=== PATIENT | female | born 1960 | race Caucasian/White ===

== ENCOUNTER → 2017-05-10 | Outpatient (CLI) | payer MEDICARE, MEDICAID ==
[~2017-05-10] MED LIST: ACE325 PO; ACE325S PR; ADV250/50 INH; ALB17R IH; ALBL FT; ALBU90AE INH; ALBUDR INH; ALE70 PO; ALP1 PO; ALP5 PO; ALPR-434 PO; ARIP10TA4 PO; ARIP15TA9 PO; ASC500 PO; ASCO500C9 PO; ASPI-1471 PO; ATEN-65 PO; ATEN-76 PO; ATOR20TA22 PO; ATOR20TA65 PO; BAC10 PO; BACI28.310 TP; BACL-1 PO; BISA-107 PO; BISM1BAN TP; BUDE10.2 IH; BUDE10.25 IH; BUPR-118 PO; BUPR-474 PO; BUPR300T56 PO; CALC-774 PO; CALC-896 PO; CALC667C7 PO; CEF300 PO; CELE-1 PO; CEP500 PO; CHOL100062 PO; CIPR-344 PO; CIPR-345 PO; CYC10 PO; DARI15TA5 PO; DOXA1TAB37 PO; DUL30 PO; DULO60CA51 PO; DULO60CA56 PO; ESZO1TAB16 PO; ESZO3TAB37 PO; FAM20 PO; FEN100TPT TD; FENT-16 TD; FENT-23 TD; FENT-60 TD; FESO8PT PO; FEXO180T74 PO; FLUC150T40 PO; FLUINH INH; FLUT100D INH; FLUT1DIS28 IH; FUR20 PO; GAB300 PO; GEM600 PO; HCTZ25 PO; HYD2 PO; HYDR-2946 PO; HYDR-319; HYDR-3724 PO; HYDR-4308 PO; HYDR-4309 PO; IBUP-56 PO; LEVO-85 PO; LEVO500T83 PO; LOPE-88 PO; LOSA100T67 PO; LOVA20TA99 PO; METO-733 PO; METR-1 PO; MIRA50TA PO; MON10 PO; MONT10TA PO; MORIR15 PO; MORP-23 PO; MORPHINE PO; NOR75/325 PO; OMEG-11 PO; OMEG-23 PO; OMEG-27 PO; OMEP-137 PO; OMEP40CA48 PO; OMEP40CA79 PO; ORP100 PO; OXY5 PO; OXYC-865 PO; OXYGEN INH; OXYGENHOME INH; OXYXL5 PO; POT5L PO; POTA10CA61 PO; PRA20 PO; PRAV40TA78 PO; PRE20 PO; PRED20TA6 PO; PROM-110 PO; PROP10TA58 PO; ROPI0.5T24 PO; SITA100T9 PO; SPIR25TA78 PO; TOLT4CAP13 PO; TRAZ-133 PO; TRAZ-156 PO; TRAZ50 PO; TROL85CR TP; VALS-25 PO; VALS160T20 PO; [UNRECOGNIZED DRUG - CODE] PO; [UNRECOGNIZED DRUG - CODE] TP; [UNRECOGNIZED DRUG - CODE] TP; [UNRECOGNIZED DRUG - CODE] TP; [UNRECOGNIZED DRUG - CODE] TP
[2017-05-10 14:27] LABS: LDL CHOLESTEROL 72 mg/dl
== END ==
LOC: LAB 13:46
PROVIDERS: ATTEND Nurse Practitioner Family
DX: I10 Essential (primary) hypertension (principal); G47.30 Sleep apnea, unspecified; K50.90 Crohn's disease, unspecified, without complications; Z86.39 Personal history of other endocrine, nutritional and metabolic disease; E87.6 Hypokalemia; R73.01 Impaired fasting glucose; D51.0 Vitamin B12 deficiency anemia due to intrinsic factor deficiency; E55.9 Vitamin D deficiency, unspecified
CPT/HCPCS: 36415; 82040; 82247; 82306; 82310; 82374; 82435; 82465; 82565; 82607; 82947; 83036; 83718; 84075; 84132; 84155; 84295; 84443; 84450; 84460; 84478; 84520; 85027

== ENCOUNTER → 2017-08-19 | Outpatient (CLI) | payer MEDICARE, MEDICAID ==
[~2017-08-19] MED LIST changes: -ALBL FT; +ALBU2SYR19 FT
== END ==
LOC: LAB 14:12
PROVIDERS: ATTEND Urology
DX: N39.0 Urinary tract infection, site not specified (principal); B96.20 Unspecified Escherichia coli [E. coli] as the cause of diseases classified elsewhere
CPT/HCPCS: 81001; 87077; 87088; 87186

== ENCOUNTER 2017-11-14 16:56 | Emergency (ER) | payer MEDICARE, MEDICAID ==
[~2017-11-14 16:56] MED LIST changes: -SPIR25TA78 PO; +SPIR25TA80 PO; -TRAZ-156 PO; +TRAZ50TA34 PO
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
[2017-11-14 18:56] LABS: PLATELET COUNT, AUTOMATED 232 K/uL (150-450)
--- NOTE | 2017-11-14 19:17 | RADIOLOGY IMAGING REPORT ---
FACILITY: [facility] - [place] PATIENT NAME: Mounika Thornton : 1960 MR: [id number] V: [id number] EXAM DATE: ORDERING PHYSICIAN: DANIELLE QUINONEZ TECHNOLOGIST: Location: [facility] Patient: Mounika Thornton : 1960 Visit/Account:[id number] Date of Sevice: 11/14/2017 Examination: HIP RIGHT, FEMUR RIGHT Comparison: 04/14/2015 History: Right upper leg pain. Paraplegia. Findings: 1 view pelvis and 1 view right hip. The pelvic ring is intact. Pubic symphysis and sacroiliac joint a lignment is maintained. Hip alignment is within normal limits and the hip joint space is fairly well- preserved. 2 views right femur: Right femur antegrade intramedullary zacarias with distal and proximal interlocking s crews bridging a healed mid diaphysis fracture. Surgical hardware is intact. No acute fracture. Dystr ophic ossification adjacent to the greater tuberosity is unchanged. Knee alignment is within normal l imits. No soft tissue acute abnormality. Diffuse atrophy of the musculature. IMPRESSION: 1. No pelvis, right hip, or right femur fracture or malalignment. 2. Right femur internal fixation. Report Dictated By: Michael Ott MD at 11/14/2017 7:11 PM Report E-Signed By: Michael Ott MD at 11/14/2017 7:14 PM WSN:[id number]
--- NOTE | 2017-11-14 19:17 | RADIOLOGY IMAGING REPORT ---
FACILITY: [facility] PATIENT NAME: Mounika Thornton : 1960 MR: [id number] V: [id number] EXAM DATE: ORDERING PHYSICIAN: DANIELLE QUINONEZ TECHNOLOGIST: Location: [facility] Patient: Mounika Thornton : 1960 Visit/Account:[id number] Date of Sevice: 11/14/2017 Examination: HIP RIGHT, FEMUR RIGHT Comparison: 04/14/2015 History: Right upper leg pain. Paraplegia. Findings: 1 view pelvis and 1 view right hip. The pelvic ring is intact. Pubic symphysis and sacroiliac joint a lignment is maintained. Hip alignment is within normal limits and the hip joint space is fairly well- preserved. 2 views right femur: Right femur antegrade intramedullary zacarias with distal and proximal interlocking s crews bridging a healed mid diaphysis fracture. Surgical hardware is intact. No acute fracture. Dystr ophic ossification adjacent to the greater tuberosity is unchanged. Knee alignment is within normal l imits. No soft tissue acute abnormality. Diffuse atrophy of the musculature. IMPRESSION: 1. No pelvis, right hip, or right femur fracture or malalignment. 2. Right femur internal fixation. Report Dictated By: Michael Ott MD at 11/14/2017 7:11 PM Report E-Signed By: Michael Ott MD at 11/14/2017 7:14 PM WSN:[email or web address]
--- NOTE | 2017-11-14 19:21 | RADIOLOGY IMAGING REPORT ---
FACILITY: [facility] - [place] PATIENT NAME: Mounika Thornton : 1960 MR: [id number] V: [id number] EXAM DATE: ORDERING PHYSICIAN: DANIELLE QUINONEZ TECHNOLOGIST: Location: [facility] Patient: Mounika Thornton : 1960 Visit/Account:[id number] Date of Sevice: 11/14/2017 Examination: LUMBAR SPINE 2 OR 3 VIEW Comparison: 08/11/2015. History: pain Findings: T11-L1 posterior fusion with pedicle screws and paraspinal rods is incompletely visualized. The visualized hardware is intact. Approximately 4 mm of degenerative spondylolisthesis at L4-L5 is unchanged. Multilevel advanced facet arthropathy. Minimal disc space loss. No new vertebral body heig ht loss or malalignment. No acute soft tissue abnormality. IMPRESSION: 1. T11-L1 posterior fusion. 2. No lumbar spine acute vertebral body height loss or malalignment. Report Dictated By: Michael Ott MD at 11/14/2017 7:14 PM Report E-Signed By: Michael Ott MD at 11/14/2017 7:18 PM WSN:[id number]
[2017-11-14 19:30] VITALS: BP 101/50
[2017-11-14] MEDS ORDERED: VALA100062 PO (20:02)
[2017-11-14] MEDS ORDERED: LIDO700A19 TD (20:02)
[2017-11-14] MEDS ORDERED: valACYclovir HCL 500 MG TAB PO ONE (20:05)
[2017-11-14] MEDS ORDERED: LIDOCAINE 5% PATCH TP SCH (20:05)
[2017-11-14] MEDS ORDERED: PATCH REMOVAL 1 EA TOP SCH (21:00)
== END 2017-11-14 20:25 | disposition home or self-care (01) ==
LOC: ER 17:21
DX: B02.9 Zoster without complications (principal)
CPT/HCPCS: 36415; 72100; 73502; 73552; 85025; 85651; 86140; 99284; A9270; 82040; 82247; 82310; 82374; 82435; 82565; 82947; 84075; 84132; 84155; 84295; 84450; 84460; 84520

== ENCOUNTER → 2017-12-03 | Outpatient (REF) | payer MEDICARE, MEDICAID ==
[~2017-12-03] MED LIST changes: +LIDO700A19 TD; +VALA100062 PO
== END ==
LOC: ZZSENDIN 15:27
PROVIDERS: ATTEND Nurse Practitioner Family
DX: S91.302A Unspecified open wound, left foot, initial encounter (principal); B96.20 Unspecified Escherichia coli [E. coli] as the cause of diseases classified elsewhere
CPT/HCPCS: 87070; 87077; 87186

== ENCOUNTER → 2017-12-23 | Outpatient (CLI) | payer MEDICARE, MEDICAID ==
--- NOTE | 2017-12-24 14:27 | RADIOLOGY IMAGING REPORT ---
[place] [facility] [place] Mounika Thornton : 1960 MR: [id number] V: [id number] EXAM DATE: ORDERING PHYSICIAN: SVITLANA WOOTEN TECHNOLOGIST: Location: [facility] [place] Patient: Mounika Thornton : 1960 Visit/Account:[id number] Date of Sevice: 12/23/2017 Exam type: FOOT 3 VIEW LEFT History: Foot pain and ulcer Comparison: December 16, 2012. Findings: There is diffuse osteopenia present. An old posterior fracture deformity the distal left tibia and f ibula again seen.. There is a deformity of the calcaneus suggesting prior fracture which appears new when compared the prior study There is no evidence of acute fracture dislocation identified although extensive degenerative changes are seen throughout the interphalangeal joints. No definite bony ero david is seen. IMPRESSION: 1. Diffuse osteopenia and old fractures through the distal left tibia fibula in calcaneus although n o gross evidence of bony erosion or acute appearing fracture Report Dictated By: Flavia Regan MD at 12/24/2017 2:01 PM Report E-Signed By: Flavia Regan MD at 12/24/2017 2:23 PM WSN:[email or web address]
--- NOTE | 2017-12-24 14:30 | RADIOLOGY IMAGING REPORT ---
FACILITY: [facility] - [place] PATIENT NAME: Mounika Thornton : 1960 MR: [id number] V: [id number] EXAM DATE: ORDERING PHYSICIAN: SVITLANA WOOTEN TECHNOLOGIST: Location: [facility] [place] Patient: Mounika Thornton : 1960 Visit/Account:[id number] Date of Sevice: 12/23/2017 Exam type: FOOT 3 VIEW RIGHT History: Foot pain with ulcer Comparison: April 22, 2012. Findings: There is diffuse osteopenia present and degenerative changes seen throughout the interphalangeal join ts and first MTP joint. There is no evidence of acute fracture or dislocation or bony erosion. Ther e suggestion of old fracture to the distal right tibia IMPRESSION: 1. Osteopenia and old fracture to the distal right tibia although no evidence of acute fracture or b jeannette erosion seen Report Dictated By: Flavia Regan MD at 12/24/2017 2:23 PM Report E-Signed By: Flavia Regan MD at 12/24/2017 2:25 PM WSN:[email or web address]
== END ==
LOC: RAD 13:45
PROVIDERS: ATTEND Nurse Practitioner Family
DX: M85.871 Other specified disorders of bone density and structure, right ankle and foot (principal); M85.872 Other specified disorders of bone density and structure, left ankle and foot

== ENCOUNTER → 2018-01-02 | Outpatient (CLI) | payer MEDICARE, MEDICAID ==
--- NOTE | 2018-01-02 15:50 | RADIOLOGY IMAGING REPORT ---
FACILITY: [facility] PATIENT NAME: Mounika Thornton : 1960 MR: [id number] V: [id number] EXAM DATE: ORDERING PHYSICIAN: SVITLANA WOOTEN TECHNOLOGIST: Location: [facility] Patient: Mounika Thornton : 1960 Visit/Account:[id number] Date of Sevice: 01/02/2018 VENOUS DOPP LOW LEFT EXTREMITY ADDITIONAL PERTINENT HISTORY: Edema of the left lower leg.. COMPARISON STUDIES: None. FINDINGS: Grayscale compression, duplex and color Doppler interrogation of the left lower extremity deep veins from common femoral vein to proximal calf was performed. The greater saphenous vein in the ipsilatera l proximal thigh was evaluated using similar technique. Left lower extremity: Common femoral vein: Negative. Femoral vein: Negative. Deep femoral vein: Negative. Popliteal vein: Negative. Visualized deep calf veins Negative. Greater saphenous vein in the proximal thigh: Negative. Popliteal fossa: negative Surrounding soft tissues: Mild edema involving the left calf. IMPRESSION: 1. No evidence of deep venous thrombosis involving the left lower extremity. Report Dictated By: César Lott MD at 01/02/2018 3:44 PM Report E-Signed By: César Lott MD at 01/02/2018 3:45 PM WSN:[email or web address]
== END ==
LOC: US 14:17
PROVIDERS: ATTEND Nurse Practitioner Family
DX: R60.0 Localized edema (principal)

== ENCOUNTER 2018-02-22 18:10 | Emergency (ER) | payer MEDICARE, MEDICAID ==
[~2018-02-22 18:10] MED LIST changes: -HYDR-4308 PO; -HYDR-4309 PO; +HYDR-653 PO; +HYDR-654 PO; -LOSA100T67 PO; +LOSA100T69 PO
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
[2018-02-22] MEDS ORDERED: NS(*) 0.9% 1000 ML BAG 1,000 ML IV ONE (18:37)
[2018-02-22 19:17] LABS: PLATELET COUNT, AUTOMATED 273 K/uL (150-450)
[2018-02-22] MEDS ORDERED: IOPAMIDOL 76% 75 ML INFUS BTL 75 ML ONE (19:55)
--- NOTE | 2018-02-22 21:01 | RADIOLOGY IMAGING REPORT ---
[place] [facility] [place] Mounika Thornton : 1960 MR: [id number] V: [id number] EXAM DATE: ORDERING PHYSICIAN: ESAU CLEMONS TECHNOLOGIST: Location: [facility] Patient: Mounika Thornton : 1960 Visit/Account:[id number] Date of Sevice: 02/22/2018 Computed tomograpy abdomen and pelvis with IV contrast Indication: Possible inguinal hernia. Further evaluate. Comparison: 12/15/2013 Technique: Transaxial computed tomography images were obtained through the abdomen and pelvis follo wing the injection of nonionic iodinated intravenous contrast. Reformatted coronal and sagittal image s were also obtained. One of the following dose optimization techniques was utilized in the performance of this exam: Autom ated exposure control; adjustment of the mA and/or kV according to the patient's size; or use of an i terative reconstruction technique. Specific details can be referenced in the facility's radiology C T exam operational policy. Contrast: 75 ml of Isovue-370 IV contrast. Findings: Lower lung nguyen: Linear atelectasis is seen within the left lung base. Old left-sided rib fractures are seen. Liver: No focal parenchymal abnormality of the liver. Biliary: There has been previous cholecystectomy. There is stable, mild central biliary dilatation wi th dilatation of the common duct. Common duct tapers distally in the head of the pancreas. This likel y reflects the previous cholecystectomy but correlation with liver function tests is recommended. Pancreas: Normal appearance. Spleen: Normal appearance. Adrenal glands: Unremarkable. Kidneys / retroperitoneum: There is a small left lower pole renal cyst. Multifocal areas of renal cor tical scarring involve the left kidney which are new from 2014. This likely reflects sequela of previ ous infection. Correlate clinically. There are extrarenal pelves bilaterally. No evidence of hydronep hrosis. Bowel / peritoneum / mesenteries: No evidence of colonic wall thickening or pericolonic inflammation. The appendix measures 6 to 7 mm in diameter. This was noted on the previous exam. No surrounding inf lammatory stranding. No small bowel dilatation is seen. No evidence to suggest bowel obstruction. The re is no evidence of inguinal hernia. Lymph node assessment: No pathologic adenopathy identified. Pelvic structures: There has been previous hysterectomy. No free pelvic fluid. Vessels: No significant atherosclerotic calcifications seen throughout a nonaneurysmal abdominal aort a and branches. Musculoskeletal / Body wall: There has been prior lumbar fusion procedure with posterior instrumentat ion performed from T11 to L1. Areas of soft tissue attenuation involve the hip joints. Similar findin gs seen in 2014. There is diffuse atrophy of the pelvic musculature and the upper thigh musculature i n keeping with the reported history of paraplegia. IMPRESSION: 1. No acute inflammatory process within the abdomen or the pelvis. 2. No evidence of inguinal hernia. 3. Old healed left rib fractures. 4. Biliary dilatation without change from 2014 and likely sequela of prior cholecystectomy. 5. New areas of renal parenchymal scarring involving the left kidney. This may be sequela of prior in fection. Correlate clinically. Report Dictated By: Garry Mulligan at 02/22/2018 8:38 PM Report E-Signed By: Garry Mulligan at 02/22/2018 8:57 PM WSN:[id number]
[2018-02-22] MEDS ORDERED: ARIP15TA9 PO (21:23)
[2018-02-22 21:51] VITALS: BP 103/69
== END 2018-02-22 22:10 | disposition home or self-care (01) ==
LOC: ER 18:22
DX: R19.7 Diarrhea, unspecified (principal); K64.9 Unspecified hemorrhoids
CPT/HCPCS: 74177; 81001; 85025; 96360; 99284; J7030; Q9967; 82040; 82247; 82310; 82374; 82435; 82565; 82947; 84075; 84132; 84155; 84295; 84450; 84460; 84520

== ENCOUNTER → 2018-02-25 | Outpatient (CLI) | payer MEDICARE, MEDICAID | LOC: LAB 14:25 | PROVIDERS: ATTEND Nurse Practitioner Family | DX: R19.7 Diarrhea, unspecified (principal) | CPT/HCPCS: 82274; 83630; 87045 ==

== ENCOUNTER → 2018-04-08 | Outpatient (CLI) | payer MEDICARE, MEDICAID ==
--- NOTE | 2018-04-08 13:59 | RADIOLOGY IMAGING REPORT ---
FACILITY: [facility] - [place] PATIENT NAME: Mounika Thornton : 1960 MR: [id number] V: [id number] EXAM DATE: ORDERING PHYSICIAN: MAGGY LARRY TECHNOLOGIST: Location: [facility] - [place] Patient: Mounika Thornton : 1960 Visit/Account:[id number] Date of Sevice: 04/08/2018 KIDNEYS EXAMINATION: Renal ultrasound. History: Paraplegia, UTI COMPARISON STUDIES: Renal ultrasound July 12, [address] abdomen pelvis February 22, 2018 FINDINGS: Kidneys: Right kidney- 8.7 x 4.7 x 5.1 cm Left kidney- 9.1 x 3.3 x 3.1 cm Uniform and symmetric blood flow in each kidney by Doppler ultrasound. Hydronephrosis: none In the mid left kidney there is a 1.8 cm isoechoic region which could represent a column of [place] or related to the cortical scarring as seen on the recent CT of February 22, 2018. A mass lesion is not likely given the recent CT results Bladder: Urinary bladder prevoid volume 124 mL. Post void residual 26.6 mL. Ureteral jets were not identified Abdominal aorta and IVC: Aorta and IVC are patent by Doppler ultrasound. IMPRESSION: Isoechoic region is seen in the mid left kidney likely related to a column of [place] or the cortical scarring as seen on the recent CT scan dated Ureteral jets were not identified Report Dictated By: Flavia Regan MD at 04/08/2018 1:50 PM Report E-Signed By: Flavia Regan MD at 04/08/2018 1:55 PM WSN:[id number]
== END ==
LOC: US 02:03
PROVIDERS: ATTEND Urology
DX: N31.2 Flaccid neuropathic bladder, not elsewhere classified (principal); N39.0 Urinary tract infection, site not specified; R35.0 Frequency of micturition
CPT/HCPCS: 76705

== ENCOUNTER 2018-04-29 15:01 | Emergency (ER) | payer MEDICARE, MEDICAID ==
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
[2018-04-29] MEDS ORDERED: MORPHINE 4 MG/ML SDV IVP ONE (15:20)
[2018-04-29] MEDS ORDERED: DIPHTH/TETANUS/ACEL. PERTUSSIS IM ONLY ONE (15:20)
[2018-04-29] MEDS ORDERED: NS(*) 0.9% 1000 ML BAG 1,000 ML IV ONE (15:20)
[2018-04-29] MEDS ORDERED: fentaNYL CITR 100 MCG/2 ML AMP IVP ONE (16:10)
[2018-04-29 17:00] VITALS: BP 116/69
== END 2018-04-29 17:40 | disposition short-term general hospital (02) ==
LOC: ER 15:06
DX: T24.312A Burn of third degree of left thigh, initial encounter (principal); T24.311A Burn of third degree of right thigh, initial encounter; T22.311A Burn of third degree of right forearm, initial encounter; T24.212A Burn of second degree of left thigh, initial encounter; T24.211A Burn of second degree of right thigh, initial encounter; T22.211A Burn of second degree of right forearm, initial encounter; T31.0 Burns involving less than 10% of body surface; X10.2XXA Contact with fats and cooking oils, initial encounter
CPT/HCPCS: 90471; 90715; 96361; 96374; 96375; 99285; J2270; J3010; J7030

== ENCOUNTER → 2018-04-29 | Outpatient (CLI) | payer MEDICARE, MEDICAID ==
[~2018-04-29] MED LIST changes: -LOSA100T69 PO; +LOSA100T75 PO
== END ==
LOC: AMB 17:14
PROVIDERS: ATTEND Nurse Practitioner
DX: T22.011A Burn of unspecified degree of right forearm, initial encounter (principal); T23.092A Burn of unspecified degree of multiple sites of left wrist and hand, initial encounter; T24.012A Burn of unspecified degree of left thigh, initial encounter; T24.011A Burn of unspecified degree of right thigh, initial encounter; X10.2XXA Contact with fats and cooking oils, initial encounter; Y93.G3 Activity, cooking and baking; G82.20 Paraplegia, unspecified; T14.8XXS Other injury of unspecified body region, sequela
CPT/HCPCS: A0425; A0426

== ENCOUNTER 2018-05-15 12:16 | Emergency (ER) | payer MEDICARE, MEDICAID ==
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
[2018-05-15 13:25] LABS: PLATELET COUNT, AUTOMATED 474 K/uL (150-450)
[2018-05-15] MEDS ORDERED: OXYC10TA67 PO (14:13)
[2018-05-15 14:40] VITALS: BP 123/64
[2018-05-15] MEDS ORDERED: TRAZ100T31 PO (16:23)
[2018-05-15] MEDS ORDERED: OXYB15TA14 PO (16:27)
[2018-05-15] MEDS ORDERED: PREG75CA60 PO (16:27)
[2018-05-15] MEDS ORDERED: IBAN150T3 PO (16:27)
[2018-05-15] MEDS ORDERED: DICY10CA11 PO (16:27)
[2018-05-15] MEDS ORDERED: MONT10TA PO (16:27)
[2018-05-15] MEDS ORDERED: HYDR-385 PO (16:36)
[2018-05-15] MEDS ORDERED: MULT1CAP59 PO (19:56)
== END 2018-05-15 14:07 | disposition other institution (70) ==
LOC: ER 12:24
DX: Z48.00 Encounter for change or removal of nonsurgical wound dressing (principal); G89.18 Other acute postprocedural pain; D64.9 Anemia, unspecified; R53.1 Weakness
CPT/HCPCS: 82040; 82247; 82310; 82374; 82435; 82565; 82947; 83735; 84075; 84132; 84155; 84295; 84450; 84460; 84520; 85025; 99284

== ENCOUNTER 2018-05-15 13:50 | Inpatient (IN) | payer MEDICARE, MEDICAID ==
[~2018-05-15] VITALS: Ht 165.1 cm; Wt 84.4 kg
[2018-05-15] MEDS ORDERED: OXYC10TA67 PO (14:13)
[2018-05-15] MEDS ORDERED: INFLUENZA VIRUS VAC 0.5ML SYR IM ONLY ONE (15:35)
[2018-05-15] MEDS ORDERED: oxyCODONE HCL 5 MG CAP PO ONE (15:35)
[2018-05-15] MEDS ORDERED: DICYCLOMINE HCL 10 MG CAP PO PRN (15:50)
[2018-05-15] MEDS ORDERED: hydrOXYzine 25 MG TAB PO PRN (15:50)
[2018-05-15] MEDS ORDERED: ALBUTEROL 8 GM INHALER INH PRN (15:50)
[2018-05-15] MEDS ORDERED: clonazePAM 0.5 MG TAB PO PRN (15:50)
[2018-05-15] MEDS ORDERED: BACLOFEN 10 MG TAB PO PRN (15:50)
[2018-05-15] MEDS ORDERED: ORPHENADRINE CITR 100 MG TABSR PO PRN (15:55)
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
[2018-05-15] MEDS ORDERED: TRAZ100T31 PO (16:23)
[2018-05-15 16:25] VITALS: BP 99/64
[2018-05-15] MEDS ORDERED: IBAN150T3 PO (16:27)
[2018-05-15] MEDS ORDERED: PREG75CA60 PO (16:27)
[2018-05-15] MEDS ORDERED: OXYB15TA14 PO (16:27)
[2018-05-15] MEDS ORDERED: MONT10TA PO (16:27)
[2018-05-15] MEDS ORDERED: DICY10CA11 PO (16:27)
[2018-05-15] MEDS ORDERED: HYDR-385 PO (16:36)
--- NOTE | 2018-05-15 17:35 | Consultant Pharmacy Review ---
Data Center Technician Review Other General Cautions X = Avoid combination B = No action needed D = Consider therapy modification Drugs in this analysis: Acetaminophen; Albuterol; ARIPiprazole; Ascorbic Acid; Atarax (CAN); AtorvaSTATin; Baclofen; Calcium Carbonate and Vitamin D; CeleBREX; ClonazePAM; Dicyclomine; DULoxetine; Enoxaparin; Losartan; Lyrica; Montelukast; Orphenadrine; OxyCODONE; Propranolol; Protonix; Spironolactone; Symbicort; TraZODone; Wellbutrin XL * Drug-Drug Interactions * X Albuterol (Beta2-Agonists) Propranolol (Beta-Blockers (Nonselective)) X ARIPiprazole (TERRAZZO TILE MAKER Depressants) Orphenadrine X Atarax (CAN) (TERRAZZO TILE MAKER Depressants) Orphenadrine X Baclofen (TERRAZZO TILE MAKER Depressants) Orphenadrine X ClonazePAM (TERRAZZO TILE MAKER Depressants) Orphenadrine X Lyrica (TERRAZZO TILE MAKER Depressants) Orphenadrine X Orphenadrine OxyCODONE (TERRAZZO TILE MAKER Depressants) X Propranolol (Beta-Blockers (Nonselective)) Symbicort (Beta2-Agonists) D ARIPiprazole Wellbutrin XL (CYP2D6 Inhibitors (Strong)) Depends on Additional drug/group, Genotype, and Indication D ARIPiprazole (TERRAZZO TILE MAKER Depressants) OxyCODONE D Atarax (CAN) (TERRAZZO TILE MAKER Depressants) OxyCODONE D Baclofen (TERRAZZO TILE MAKER Depressants) OxyCODONE D ClonazePAM (TERRAZZO TILE MAKER Depressants) OxyCODONE D Lyrica (TERRAZZO TILE MAKER Depressants) OxyCODONE D Propranolol (CYP2D6 Substrates (High risk with Inhibitors)) Wellbutrin XL (CYP2D6 Inhibitors (Strong)) C Albuterol (Sympathomimetics) Symbicort (Sympathomimetics) C ARIPiprazole CeleBREX (CYP2D6 Inhibitors (Weak)) Depends on Additional drug/group, Genotype, and Indication C ARIPiprazole DULoxetine Depends on Additional drug/group and Genotype C ARIPiprazole (Antipsychotic Agents (Second Generation [Atypical])) Losartan (Blood Pressure Lowering Agents) C ARIPiprazole (Antipsychotic Agents (Second Generation [Atypical])) Prop ranolol (Blood Pressure Lowering Agents) C ARIPiprazole (Antipsychotic Agents (Second Generation [Atypical])) Spironolactone (Blood Pressure Lowering Agents) C ARIPiprazole (Antipsychotic Agents) TraZODone (Serotonin Modulators) C ARIPiprazole (TERRAZZO TILE MAKER Depressants) Atarax (CAN) (HydrOXYzine) C ARIPiprazole (TERRAZZO TILE MAKER Depressants) Baclofen (TERRAZZO TILE MAKER Depressants) C ARIPiprazole (TERRAZZO TILE MAKER Depressants) ClonazePAM (TERRAZZO TILE MAKER Depressants) C ARIPiprazole (TERRAZZO TILE MAKER Depressants) Lyrica (TERRAZZO TILE MAKER Depressants) C Atarax (CAN) (Anticholinergic Agents) Dicyclomine (Anticholinergic Agents) C Atarax (CAN) (HydrOXYzine) Baclofen (TERRAZZO TILE MAKER Depressants) C Atarax (CAN) (HydrOXYzine) ClonazePAM (TERRAZZO TILE MAKER Depressants) C Atarax (CAN) (HydrOXYzine) Lyrica (TERRAZZO TILE MAKER Depressants) C AtorvaSTATin Spironolactone C Baclofen (TERRAZZO TILE MAKER Depressants) ClonazePAM (TERRAZZO TILE MAKER Depressants) C Baclofen (TERRAZZO TILE MAKER Depressants) Lyrica (TERRAZZO TILE MAKER Depressants) C CeleBREX (Nonsteroidal Anti-Inflammatory Agents) Enoxaparin (Anticoagulants) Depends on International labeling C CeleBREX (Nonsteroidal Anti-Inflammatory Agents) Losartan (Angiotensin II Receptor Blockers) C CeleBREX (Nonsteroidal Anti-Inflammatory Agents) Propranolol (Beta-Blockers) Depends on Dosage Form C CeleBREX (Nonsteroidal Anti-Inflammatory Agents) Spironolactone (Potassium- Sparing Diuretics) C ClonazePAM (TERRAZZO TILE MAKER Depressants) Lyrica (TERRAZZO TILE MAKER Depressants) C Dicyclomine (Anticholinergic Agents) Orphenadrine (Anticholinergic Agents) C Dicyclomine (Anticholinergic Agents) OxyCODONE (Opioid Analgesics) C DULoxetine Losartan (Blood Pressure Lowering Agents) C DULoxetine Propranolol (Blood Pressure Lowering Agents) C DULoxetine Spironolactone (Blood Pressure Lowering Agents) C DULoxetine Wellbutrin XL (CYP2D6 Inhibitors (Strong)) C DULoxetine (Agents with Antiplatelet Properties) Enoxaparin (Anticoagulants) Depends on International labeling C DULoxetine (Serotonin Modulators) OxyCODONE (Opioid Analgesics) C DULoxetine (Serotonin Modulators) TraZODone (Serotonin Modulators) C Enoxaparin (Heparins (Low Molecular Weight)) Losartan (Angiotensin II Receptor Blockers) C Enoxaparin (Heparins (Low Molecular Weight)) Spironolactone (Potassium- Sparing Diuretics) Depends on International labeling C Losartan (Angiotensin II Receptor Blockers) Spironolactone (Potassium- Sparing Diuretics) Depends on Additional drug/group C OxyCODONE (Opioid Analgesics) Spironolactone (Diuretics) C OxyCODONE (Opioid Analgesics) TraZODone (Serotonin Modulators) B Acetaminophen OxyCODONE (Opioid Analgesics) B Ascorbic Acid Propranolol B OxyCODONE Wellbutrin XL (CYP2D6 Inhibitors (Strong)) * Albuterol Symbicort Baclofen Orphenadrine DULoxetine TraZODone DULoxetine Wellbutrin XL TraZODone Wellbutrin XL * Disclaimer: Readers are advised that decisions regarding drug therapy must be based on the independent judgment of the clinician, changing information about a drug (eg, as reflected in the literature and greenhouse grower's most current product information), and changing medical practices. * Terms & Conditions // * Disclaimer// * Privacy Policy * [employer] on [email or web address] * [employer] on [employer] * Get [employer] [place] 2019 [employer] and its affiliates and/or licensors. All Rights Reserved. * Top of Form 1 * Bottom of Form 1 Pneumococcal Vaccine HX Pneumo Vac ([id number]): Yes (UNSURE WHEN) PRECIOUS ROSS May 15, 2018 17:35
[2018-05-15] MEDS: CALCIUM CARBONATE/VITAMIN D3 PO SCH (17:51)
[2018-05-15] MEDS: CELECOXIB 200 MG CAP PO SCH (17:51)
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
[2018-05-15] MEDS: BUDESO/FORMOT 160/4.5 MCG 6 GM INH SCH (18:37)
[2018-05-15] MEDS ORDERED: MULT1CAP59 PO (19:56)
[2018-05-15] MEDS: PROPRANOLOL HCL 20 MG TAB PO SCH (20:39)
[2018-05-15] MEDS: ATORVASTATIN 40 MG TAB PO SCH (20:39)
[2018-05-15] MEDS: oxyCODONE HCL 5 MG CAP PO PRN (20:39)
[2018-05-15] MEDS: traZODone HCL 50 MG TAB PO PRN (20:39)
[2018-05-15] MEDS: PREGABALIN 75 MG CAPSULE PO SCH (20:40)
[2018-05-15] MEDS: ASCORBIC ACID 500 MG TAB PO SCH (20:40)
[2018-05-16] MEDS: oxyCODONE HCL 5 MG CAP PO PRN ×4 (01:41→16:08)
[2018-05-16 05:42] LABS: PLATELET COUNT, AUTOMATED 460 K/uL (150-450)
[2018-05-16] MEDS: BUDESO/FORMOT 160/4.5 MCG 6 GM INH SCH ×2 (06:06→17:11)
[2018-05-16 07:30] VITALS: BP 107/63
[2018-05-16] MEDS: ENOXAPARIN 40 MG/0.4ML SYR SC SCH (08:28)
[2018-05-16] MEDS: ARIPiprazole 10 MG TAB PO SCH (08:29)
[2018-05-16] MEDS: SPIRONOLACTONE 25 MG TAB PO SCH (08:30)
[2018-05-16] MEDS: PANTOPRAZOLE SOD 40 MG TABEC PO SCH (08:31)
[2018-05-16] MEDS: buPROPion XL 150 MG TABCR PO SCH (08:31)
[2018-05-16] MEDS: DULoxetine HCL 30 MG CAPCR PO SCH (08:31)
[2018-05-16] MEDS: MONTELUKAST SODIUM 10 MG TAB PO SCH (08:31)
[2018-05-16] MEDS: PROPRANOLOL HCL 20 MG TAB PO SCH ×2 (08:31→20:58)
[2018-05-16] MEDS: ASCORBIC ACID 500 MG TAB PO SCH ×2 (08:32→20:59)
[2018-05-16] MEDS: PREGABALIN 75 MG CAPSULE PO SCH ×2 (08:32→20:59)
[2018-05-16] MEDS: CELECOXIB 200 MG CAP PO SCH ×2 (08:32→16:58)
[2018-05-16] MEDS: CALCIUM CARBONATE/VITAMIN D3 PO SCH ×2 (08:32→16:58)
[2018-05-16] MEDS: LOSARTAN POTASSIUM 50 MG TAB PO SCH (09:00)
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
--- NOTE | 2018-05-16 11:18 | NUR ---
Occupational Therapy Impression Initial OT evaluation completed. Please refer to reports for details regarding plan of care and goals. Occupational Therapy Goals 1) Pt will be Mod (I) UB/LB dressing. 2) Pt will be Mod (I) grooming/hygiene. 3) Pt will be Mod (I) for toilet task (incl. self cath). 4) Pt will be Min A shower task. 5) Pt Omar Index of ADLs score will improve by 2 points. Patient's Goal
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
[2018-05-16 15:13] VITALS: BP 95/48
--- NOTE | 2018-05-16 17:10 | NUR ---
Physical Therapy Impression PT mobility eval complete. Much of eval time spent coordinating with nursing for dressing changes. Also spoke with Garo Nails RN at [facility] (per Pt request) regarding DC plan for graft and donor site dressing changes. After discussion with Ms. Nails, the following plan was agreed upon: Daily shower with mild soap and water. Donor sites: xeroform and curlex. Autograft sites: medihoney and adaptic and curlex. On Friday 05/19: PT to re-evaluate and use Mepilex AG foam/boarder on donor sites and attempt to leave x3 days. This PT contacted Dr. Vidal's office regarding this plan. Left message. PT to follow-up tomorrow 05/17 to ensure adequate communication of plan for dressing changes. Noted 1cm x 0.8cm heel wound currently open to air. No slough/necrotic tissue noted at this time, thus, no debridement performed. Alginate placed in wound bed to manage any drainage and would dressed with silicone boarded dressing. PT to re-evaluate dressing choice tomorrow 05/17. Non-billable time. Nursing dressed LEs today. Physical Therapy Goals 1. Mod I bed mobility. 2. Mod I transfers with previous technique of lateral scoot. 3. Mod I wheelchair mobility. Patient's Goals
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
[2018-05-16 20:29] VITALS: BP 108/60
[2018-05-16] MEDS: ATORVASTATIN 40 MG TAB PO SCH (20:58)
[2018-05-16] MEDS: traZODone HCL 50 MG TAB PO PRN (21:40)
[2018-05-17] MEDS: oxyCODONE HCL 5 MG CAP PO PRN ×4 (02:21→19:32)
[2018-05-17] MEDS: BUDESO/FORMOT 160/4.5 MCG 6 GM INH SCH ×2 (06:31→17:14)
[2018-05-17 07:43] VITALS: BP 90/39
[2018-05-17 08:27] VITALS: BP 114/58
[2018-05-17] MEDS: CELECOXIB 200 MG CAP PO SCH ×2 (08:39→17:43)
[2018-05-17] MEDS: ENOXAPARIN 40 MG/0.4ML SYR SC SCH (08:39)
[2018-05-17] MEDS: CALCIUM CARBONATE/VITAMIN D3 PO SCH ×2 (08:39→17:42)
[2018-05-17] MEDS: DULoxetine HCL 30 MG CAPCR PO SCH (08:39)
[2018-05-17] MEDS: ARIPiprazole 10 MG TAB PO SCH (08:39)
[2018-05-17] MEDS: PREGABALIN 75 MG CAPSULE PO SCH ×2 (08:40→21:25)
[2018-05-17] MEDS: PROPRANOLOL HCL 20 MG TAB PO SCH ×2 (08:40→21:24)
[2018-05-17] MEDS: MONTELUKAST SODIUM 10 MG TAB PO SCH (08:40)
[2018-05-17] MEDS: ASCORBIC ACID 500 MG TAB PO SCH ×2 (08:41→21:25)
[2018-05-17] MEDS: SPIRONOLACTONE 25 MG TAB PO SCH (08:41)
[2018-05-17] MEDS: PANTOPRAZOLE SOD 40 MG TABEC PO SCH (08:41)
[2018-05-17] MEDS: buPROPion XL 150 MG TABCR PO SCH (08:41)
[2018-05-17] MEDS: LOSARTAN POTASSIUM 50 MG TAB PO SCH (09:00)
--- NOTE | 2018-05-17 13:17 | NUR ---
Physical Therapy Impression 05/17/18: Follow-up with Pt regarding L heel wound which has not drained and remains clean and closed. This PT removed alginate and replaced silicone boarder gauze. PT to re-evaluate on Saturday05/19/18. Previous dressing on donor sites did not adequately manage drainage from yesterday (Saturday05/16/18). After a shower with mild soap, this PT dressed donor sites with Mepilex AG foam, graft sites with Medihoney and Adaptic, and wrapped all with Curlex per recommendation from [facility]. PT to follow-up tomorrow to reassess. Non-billable time as no debridement was necessary. Physical Therapy Goals 1. Mod I bed mobility. 2. Mod I transfers with previous technique of lateral scoot. 3. Mod I wheelchair mobility. Patient's Goals
[2018-05-17 15:50] VITALS: BP 107/57
[2018-05-17] MEDS: ATORVASTATIN 40 MG TAB PO SCH (21:25)
[2018-05-17] MEDS: traZODone HCL 50 MG TAB PO PRN (21:30)
[2018-05-18] MEDS: oxyCODONE HCL 5 MG CAP PO PRN ×2 (02:47→12:55)
[2018-05-18] MEDS: BUDESO/FORMOT 160/4.5 MCG 6 GM INH SCH ×2 (06:00→17:32)
[2018-05-18 07:53] VITALS: BP 105/54
[2018-05-18] MEDS: ENOXAPARIN 40 MG/0.4ML SYR SC SCH (08:34)
[2018-05-18] MEDS: PANTOPRAZOLE SOD 40 MG TABEC PO SCH (08:35)
[2018-05-18] MEDS: CELECOXIB 200 MG CAP PO SCH ×2 (08:35→17:36)
[2018-05-18] MEDS: MONTELUKAST SODIUM 10 MG TAB PO SCH (08:35)
[2018-05-18] MEDS: CALCIUM CARBONATE/VITAMIN D3 PO SCH ×2 (08:35→17:36)
[2018-05-18] MEDS: LOSARTAN POTASSIUM 50 MG TAB PO SCH (08:35)
[2018-05-18] MEDS: buPROPion XL 150 MG TABCR PO SCH (08:36)
[2018-05-18] MEDS: ARIPiprazole 10 MG TAB PO SCH (08:36)
[2018-05-18] MEDS: DULoxetine HCL 30 MG CAPCR PO SCH (08:36)
[2018-05-18] MEDS: SPIRONOLACTONE 25 MG TAB PO SCH (08:36)
[2018-05-18] MEDS: PREGABALIN 75 MG CAPSULE PO SCH ×2 (08:37→21:10)
[2018-05-18] MEDS: PROPRANOLOL HCL 20 MG TAB PO SCH ×2 (08:37→21:10)
[2018-05-18] MEDS: ASCORBIC ACID 500 MG TAB PO SCH ×2 (08:37→21:10)
--- NOTE | 2018-05-18 12:51 | NUR ---
Physical Therapy Impression 05/18/18: Dressings to donor sites are adequately managing drainage and will be left intact until tomorrow ([facility] recommended leaving intact 3 days if possible). This PT was able to lift edge of dressings to view both donor site and graft site and both are improved compared to yesterday. Nursing instructed to change Curlex only if it becomes saturated through the evening/night. PT to view again tomorrow. Non-billable time. Physical Therapy Goals 1. Mod I bed mobility. 2. Mod I transfers with previous technique of lateral scoot. 3. Mod I wheelchair mobility. Patient's Goals
[2018-05-18 19:00] VITALS: BP 110/65
[2018-05-18] MEDS: ATORVASTATIN 40 MG TAB PO SCH (21:10)
[2018-05-18] MEDS: traZODone HCL 50 MG TAB PO PRN (21:11)
[2018-05-19] MEDS: oxyCODONE HCL 5 MG CAP PO PRN ×3 (03:27→21:21)
[2018-05-19] MEDS: BUDESO/FORMOT 160/4.5 MCG 6 GM INH SCH ×2 (05:50→17:08)
[2018-05-19 07:36] VITALS: BP 97/56
[2018-05-19] MEDS: PROPRANOLOL HCL 20 MG TAB PO SCH ×3 (08:36→21:20)
[2018-05-19] MEDS: PANTOPRAZOLE SOD 40 MG TABEC PO SCH (08:37)
[2018-05-19] MEDS: LOSARTAN POTASSIUM 50 MG TAB PO SCH (08:37)
[2018-05-19] MEDS: ASCORBIC ACID 500 MG TAB PO SCH ×2 (08:38→21:21)
[2018-05-19] MEDS: ARIPiprazole 10 MG TAB PO SCH (08:38)
[2018-05-19] MEDS: CELECOXIB 200 MG CAP PO SCH ×2 (08:38→19:40)
[2018-05-19] MEDS: ENOXAPARIN 40 MG/0.4ML SYR SC SCH (08:38)
[2018-05-19] MEDS: CALCIUM CARBONATE/VITAMIN D3 PO SCH ×2 (08:38→19:40)
[2018-05-19] MEDS: MONTELUKAST SODIUM 10 MG TAB PO SCH (08:38)
[2018-05-19] MEDS: buPROPion XL 150 MG TABCR PO SCH (08:39)
[2018-05-19] MEDS: DULoxetine HCL 30 MG CAPCR PO SCH (08:39)
[2018-05-19] MEDS: PREGABALIN 75 MG CAPSULE PO SCH ×2 (08:39→21:21)
[2018-05-19] MEDS: SPIRONOLACTONE 25 MG TAB PO SCH (08:40)
--- NOTE | 2018-05-19 14:25 | NUR ---
Occupational Therapy Impression Pt. demonstrated the ability to perform all transfers with SBA. Pt. also demonstrated the ability to doff socks with independence, while seated at EOB. Pt. required SBA to perform toileting activities. Continue with POC. Occupational Therapy Goals 1) Pt will be Mod (I) UB/LB dressing. 2) Pt will be Mod (I) grooming/hygiene. 3) Pt will be Mod (I) for toilet task (incl. self cath). 4) Pt will be Min A shower task. 5) Pt Omar Index of ADLs score will improve by 2 points. Patient's Goal
[2018-05-19 15:29] VITALS: BP 107/65
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
[2018-05-19] MEDS ORDERED: oxyCODONE HCL 5 MG CAP PO ONE ×2 (16:35→16:45)
--- NOTE | 2018-05-19 18:30 | NUR ---
Physical Therapy Impression Delayed wound care after shower, as pt noted that her pain medications were due in approximately one hour. PT waited until pain meds were effective and returned for wound care. Pt notes that pain is still not yet well managed. Increased pain may be related to wounds being exposed to air for greater period of time. Plan for future visits will be directly around shower with pt pre-medicated. PT will remove dressings with shower and complete debridement as needed while wounds are still moist. PT will then reapply dressings shortly after shower to decrease time open to air that may increase pain. For all wound sites to B) upper thighs: Non-excisional debridement completed with the use of tweezers to a depth of dermis in order to remove loosely adhered slough as pt would tolerate. Wounds and graft donor sites cleansed with sterile saline and thin layer of medihoney applied to soften, as all areas had been exposed to air for a greater period of time than is optimal, due to pain medication administration. Wounds were then covered with vasaline gauze and silver mepilex foam for absorption, then secured with 2 rolls of kerlix and further reinforced with 6" shyla wrap in a hip spica wrap around abdomen to prevent rolling and scooting of dressings. Wound dimensions are the same as previous measurements at all sites. Physical Therapy Goals 1. Mod I bed mobility. 2. Mod I transfers with previous technique of lateral scoot. 3. Mod I wheelchair mobility. Patient's Goals
[2018-05-19] MEDS: traZODone HCL 50 MG TAB PO PRN (21:20)
[2018-05-19] MEDS: ATORVASTATIN 40 MG TAB PO SCH (21:20)
[2018-05-20] MEDS: oxyCODONE HCL 5 MG CAP PO PRN ×3 (02:19→19:16)
[2018-05-20] MEDS: BUDESO/FORMOT 160/4.5 MCG 6 GM INH SCH ×2 (06:01→17:00)
[2018-05-20 08:05] VITALS: BP 121/59
[2018-05-20 08:48] VITALS: BP 112/55
[2018-05-20] MEDS: ENOXAPARIN 40 MG/0.4ML SYR SC SCH (08:49)
[2018-05-20] MEDS: MONTELUKAST SODIUM 10 MG TAB PO SCH (08:50)
[2018-05-20] MEDS: buPROPion XL 150 MG TABCR PO SCH (08:50)
[2018-05-20] MEDS: DULoxetine HCL 30 MG CAPCR PO SCH (08:50)
[2018-05-20] MEDS: ASCORBIC ACID 500 MG TAB PO SCH ×2 (08:50→20:39)
[2018-05-20] MEDS: PANTOPRAZOLE SOD 40 MG TABEC PO SCH (08:50)
[2018-05-20] MEDS: ARIPiprazole 10 MG TAB PO SCH (08:50)
[2018-05-20] MEDS: SPIRONOLACTONE 25 MG TAB PO SCH (08:50)
[2018-05-20] MEDS: CALCIUM CARBONATE/VITAMIN D3 PO SCH ×2 (08:50→17:30)
[2018-05-20] MEDS: CELECOXIB 200 MG CAP PO SCH ×2 (08:50→17:30)
[2018-05-20] MEDS: PREGABALIN 75 MG CAPSULE PO SCH ×2 (08:51→21:00)
[2018-05-20] MEDS: LOSARTAN POTASSIUM 50 MG TAB PO SCH (08:51)
[2018-05-20] MEDS: PROPRANOLOL HCL 20 MG TAB PO SCH ×2 (08:51→20:39)
--- NOTE | 2018-05-20 09:42 | NUR ---
MDS completed with pt. C: 13, D: 04, E: no concerns, Q: pt already set-up with [facility], no further DC needs at present. Will continue to follow should needs arise.
--- NOTE | 2018-05-20 11:57 | NUR ---
Occupational Therapy Impression SBA lateral scoots w/c<>bed, bed<>w/c, w/c<>toilet, toilet<>w/c, w/c<>bed. Pt requires physical assist for OT to hold w/c steady as brakes do not hold. Max A toileting for thoroughness after incontinence of BM, otherwise toileting with SBA. Non-billable time [phone] to assist PT with reinforcing shlya wraps on bilateral LE. Occupational Therapy Goals 1) Pt will be Mod (I) UB/LB dressing. 2) Pt will be Mod (I) grooming/hygiene. 3) Pt will be Mod (I) for toilet task (incl. self cath). 4) Pt will be Min A shower task. 5) Pt Omar Index of ADLs score will improve by 2 points. Patient's Goal
[2018-05-20 15:30] VITALS: BP 96/58
--- NOTE | 2018-05-20 15:49 | NUR ---
Physical Therapy Impression Attempted to see pt at 1140, pt politely declined due to fatigue from a poor night of sleep and a long OT session. Tried again at 1500 without success, pt busy with another provider. Will attempt mobility again tomorrow. Physical Therapy Goals 1. Mod I bed mobility. 2. Mod I transfers with previous technique of lateral scoot. 3. Mod I wheelchair mobility. Patient's Goals
[2018-05-20] MEDS: traZODone HCL 50 MG TAB PO PRN (20:39)
[2018-05-20] MEDS: ATORVASTATIN 40 MG TAB PO SCH (20:39)
[2018-05-21] MEDS: BUDESO/FORMOT 160/4.5 MCG 6 GM INH SCH ×2 (05:30→17:05)
[2018-05-21] MEDS: oxyCODONE HCL 5 MG CAP PO PRN ×3 (08:48→23:40)
[2018-05-21 08:51] VITALS: BP 137/61
[2018-05-21] MEDS: CELECOXIB 200 MG CAP PO SCH ×2 (08:56→17:04)
[2018-05-21] MEDS: DULoxetine HCL 30 MG CAPCR PO SCH (08:56)
[2018-05-21] MEDS: buPROPion XL 150 MG TABCR PO SCH (08:56)
[2018-05-21] MEDS: MONTELUKAST SODIUM 10 MG TAB PO SCH (08:56)
[2018-05-21] MEDS: PANTOPRAZOLE SOD 40 MG TABEC PO SCH (08:56)
[2018-05-21] MEDS: LOSARTAN POTASSIUM 50 MG TAB PO SCH (08:56)
[2018-05-21] MEDS: ENOXAPARIN 40 MG/0.4ML SYR SC SCH (08:57)
[2018-05-21] MEDS: ARIPiprazole 10 MG TAB PO SCH (08:57)
[2018-05-21] MEDS: SPIRONOLACTONE 25 MG TAB PO SCH (08:57)
[2018-05-21] MEDS: PREGABALIN 75 MG CAPSULE PO SCH ×2 (08:57→20:30)
[2018-05-21] MEDS: CALCIUM CARBONATE/VITAMIN D3 PO SCH ×2 (08:57→17:04)
[2018-05-21] MEDS: ASCORBIC ACID 500 MG TAB PO SCH ×2 (08:57→20:30)
[2018-05-21] MEDS: PROPRANOLOL HCL 20 MG TAB PO SCH ×2 (08:58→20:30)
--- NOTE | 2018-05-21 13:35 | NUR ---
Occupational Therapy Impression UB ther ex with blue theraband. Pt progressing well towards goals. Educated on POC and likely discharge from OT Saturday. Pt verbalized understanding, reporting no further goals or concerns to be addressed. Occupational Therapy Goals 1) Pt will be Mod (I) UB/LB dressing. 2) Pt will be Mod (I) grooming/hygiene. 3) Pt will be Mod (I) for toilet task (incl. self cath). 4) Pt will be Min A shower task. 5) Pt Omar Index of ADLs score will improve by 2 points. Patient's Goal
--- NOTE | 2018-05-21 14:37 | NUR ---
Physical Therapy Impression Pt performed wheelchair<>bed and wheelchair<>toilet transfer to build strength and safety with transfers. Pt currently requires SBA for these transfers. Physical Therapy Goals 1. Mod I bed mobility. 2. Mod I transfers with previous technique of lateral scoot. 3. Mod I wheelchair mobility. Patient's Goals
[2018-05-21] MEDS: MELATONIN 3 MG TAB PO PRN (20:30)
[2018-05-21] MEDS: traZODone HCL 50 MG TAB PO PRN (20:30)
[2018-05-21] MEDS: ATORVASTATIN 40 MG TAB PO SCH (20:30)
[2018-05-21 20:35] VITALS: BP 132/71
[2018-05-22] MEDS: BUDESO/FORMOT 160/4.5 MCG 6 GM INH SCH ×2 (05:10→17:42)
[2018-05-22 05:52] LABS: PLATELET COUNT, AUTOMATED 648 K/uL (150-450)
[2018-05-22 08:40] VITALS: BP 127/57
[2018-05-22] MEDS: ARIPiprazole 10 MG TAB PO SCH (08:53)
[2018-05-22] MEDS: DULoxetine HCL 30 MG CAPCR PO SCH (08:53)
[2018-05-22] MEDS: oxyCODONE HCL 5 MG CAP PO PRN ×2 (08:53→13:00)
[2018-05-22] MEDS: CELECOXIB 200 MG CAP PO SCH ×2 (08:53→17:13)
[2018-05-22] MEDS: ENOXAPARIN 40 MG/0.4ML SYR SC SCH (08:53)
[2018-05-22] MEDS: PANTOPRAZOLE SOD 40 MG TABEC PO SCH (08:54)
[2018-05-22] MEDS: PREGABALIN 75 MG CAPSULE PO SCH ×2 (08:54→20:18)
[2018-05-22] MEDS: PROPRANOLOL HCL 20 MG TAB PO SCH ×2 (08:54→20:19)
[2018-05-22] MEDS: LOSARTAN POTASSIUM 50 MG TAB PO SCH (08:54)
[2018-05-22] MEDS: CALCIUM CARBONATE/VITAMIN D3 PO SCH ×2 (08:54→17:13)
[2018-05-22] MEDS: ASCORBIC ACID 500 MG TAB PO SCH ×2 (08:54→20:18)
[2018-05-22] MEDS: buPROPion XL 150 MG TABCR PO SCH (08:54)
[2018-05-22] MEDS: SPIRONOLACTONE 25 MG TAB PO SCH (08:55)
[2018-05-22] MEDS: MONTELUKAST SODIUM 10 MG TAB PO SCH (08:55)
--- NOTE | 2018-05-22 11:27 | NUR ---
Occupational Therapy Impression Pt has met all skilled OT goals. Plan for final session tomorrow to address last minute pt concerns or needs for OT. Pt agreeable with plan and reports no further goals or needs to be addressed with OT at this time. Occupational Therapy Goals 1) Pt will be Mod (I) UB/LB dressing. 2) Pt will be Mod (I) grooming/hygiene. 3) Pt will be Mod (I) for toilet task (incl. self cath). 4) Pt will be Min A shower task. 5) Pt Omar Index of ADLs score will improve by 2 points. Patient's Goal
[2018-05-22] MEDS: ACETAMINOPHEN 325 MG TAB PO PRN ×2 (11:40→20:19)
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
[2018-05-22 17:30] VITALS: BP 122/69
[2018-05-22] MEDS: ATORVASTATIN 40 MG TAB PO SCH (20:18)
[2018-05-22] MEDS: MELATONIN 3 MG TAB PO PRN (20:18)
[2018-05-23] MEDS: oxyCODONE HCL 5 MG CAP PO PRN ×3 (02:02→13:39)
[2018-05-23] MEDS: BUDESO/FORMOT 160/4.5 MCG 6 GM INH SCH ×2 (05:28→17:10)
[2018-05-23 08:15] VITALS: BP 136/61
[2018-05-23] MEDS: ARIPiprazole 10 MG TAB PO SCH (08:52)
[2018-05-23] MEDS: buPROPion XL 150 MG TABCR PO SCH (08:52)
[2018-05-23] MEDS: ENOXAPARIN 40 MG/0.4ML SYR SC SCH (08:52)
[2018-05-23] MEDS: CELECOXIB 200 MG CAP PO SCH ×2 (08:53→17:31)
[2018-05-23] MEDS: PREGABALIN 75 MG CAPSULE PO SCH ×2 (08:53→20:48)
[2018-05-23] MEDS: SPIRONOLACTONE 25 MG TAB PO SCH (08:53)
[2018-05-23] MEDS: ASCORBIC ACID 500 MG TAB PO SCH ×3 (08:53→20:48)
[2018-05-23] MEDS: DULoxetine HCL 30 MG CAPCR PO SCH (08:53)
[2018-05-23] MEDS: CALCIUM CARBONATE/VITAMIN D3 PO SCH ×2 (08:53→17:31)
[2018-05-23] MEDS: MONTELUKAST SODIUM 10 MG TAB PO SCH (08:53)
[2018-05-23] MEDS: PANTOPRAZOLE SOD 40 MG TABEC PO SCH (08:54)
[2018-05-23] MEDS: LOSARTAN POTASSIUM 50 MG TAB PO SCH (08:54)
[2018-05-23] MEDS: ACETAMINOPHEN 325 MG TAB PO PRN ×2 (08:54→17:31)
[2018-05-23] MEDS: PROPRANOLOL HCL 20 MG TAB PO SCH ×2 (08:54→20:48)
--- NOTE | 2018-05-23 10:30 | NUR ---
Occupational Therapy Impression Pt has met all skilled OT goals. Pt reports no further questions/concerns for OT at this time. Agreeable to discharge from OT services at this time. Occupational Therapy Goals 1) Pt will be Mod (I) UB/LB dressing. 2) Pt will be Mod (I) grooming/hygiene. 3) Pt will be Mod (I) for toilet task (incl. self cath). 4) Pt will be Min A shower task. 5) Pt Omar Index of ADLs score will improve by 2 points. Patient's Goal
--- NOTE | 2018-05-23 10:31 | NUR ---
OCCUPATIONAL THERAPY Dressing Assistance: Independent Dressing Aid Required: None Bathing Assistance: SBA Bathing Equipment: Shower chair Home Assessment: Not Completed Feeding Assistance: Independent Feeding Specialized Equipment: None Toilet Use: Modified I/ AE Verbalizes Needs: Yes Understands Precautions: Yes Cooperative: Yes Family Teaching: No Occupational Therapy Comment:
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
--- NOTE | 2018-05-23 14:45 | NUR ---
Physical Therapy Impression Emphasis on slide board transfers with attention to dressings on legs with slide board placement. Educated pt on the importance of slowing down with placement and checking dressings both before completing a transfer and afterwards. Pt is able to safely complete slide board transfers without assist, other than for catheter mgmt. Redressed pt's R arm, please see nsg note for this information. Cont. with POC. Physical Therapy Goals 1. Mod I bed mobility. 2. Mod I transfers with previous technique of lateral scoot. 3. Mod I wheelchair mobility. Patient's Goals
[2018-05-23 16:20] VITALS: BP 106/63
[2018-05-23 20:42] VITALS: BP 115/57
[2018-05-23] MEDS: ATORVASTATIN 40 MG TAB PO SCH (20:48)
[2018-05-24] MEDS: BUDESO/FORMOT 160/4.5 MCG 6 GM INH SCH ×2 (05:17→17:14)
[2018-05-24] MEDS: oxyCODONE HCL 5 MG CAP PO PRN ×4 (05:39→21:35)
[2018-05-24 08:05] VITALS: BP 113/57
[2018-05-24] MEDS: LOSARTAN POTASSIUM 50 MG TAB PO SCH (08:46)
[2018-05-24] MEDS: ARIPiprazole 10 MG TAB PO SCH (08:47)
[2018-05-24] MEDS: ENOXAPARIN 40 MG/0.4ML SYR SC SCH (08:47)
[2018-05-24] MEDS: DULoxetine HCL 30 MG CAPCR PO SCH (08:48)
[2018-05-24] MEDS: PROPRANOLOL HCL 20 MG TAB PO SCH ×2 (08:48→21:34)
[2018-05-24] MEDS: PANTOPRAZOLE SOD 40 MG TABEC PO SCH (08:48)
[2018-05-24] MEDS: buPROPion XL 150 MG TABCR PO SCH (08:48)
[2018-05-24] MEDS: ACETAMINOPHEN 325 MG TAB PO PRN (08:49)
[2018-05-24] MEDS: CELECOXIB 200 MG CAP PO SCH ×2 (08:49→17:12)
[2018-05-24] MEDS: MONTELUKAST SODIUM 10 MG TAB PO SCH (08:49)
[2018-05-24] MEDS: CALCIUM CARBONATE/VITAMIN D3 PO SCH ×2 (08:49→17:12)
[2018-05-24] MEDS: ASCORBIC ACID 500 MG TAB PO SCH ×2 (08:49→21:35)
[2018-05-24] MEDS: PREGABALIN 75 MG CAPSULE PO SCH ×2 (08:50→21:35)
[2018-05-24] MEDS: SPIRONOLACTONE 25 MG TAB PO SCH (08:50)
[2018-05-24 15:42] VITALS: BP 101/68
[2018-05-24 20:20] VITALS: BP 130/82
[2018-05-24] MEDS: traZODone HCL 50 MG TAB PO PRN (21:34)
[2018-05-24] MEDS: ATORVASTATIN 40 MG TAB PO SCH (21:35)
[2018-05-25] MEDS: BUDESO/FORMOT 160/4.5 MCG 6 GM INH SCH ×2 (05:31→18:25)
[2018-05-25] MEDS: oxyCODONE HCL 5 MG CAP PO PRN ×3 (08:02→21:31)
[2018-05-25 08:17] VITALS: BP 119/58
[2018-05-25] MEDS: CELECOXIB 200 MG CAP PO SCH ×2 (08:47→17:36)
[2018-05-25] MEDS: ARIPiprazole 10 MG TAB PO SCH (08:48)
[2018-05-25] MEDS: PREGABALIN 75 MG CAPSULE PO SCH ×2 (08:48→21:31)
[2018-05-25] MEDS: PANTOPRAZOLE SOD 40 MG TABEC PO SCH (08:48)
[2018-05-25] MEDS: ENOXAPARIN 40 MG/0.4ML SYR SC SCH (08:48)
[2018-05-25] MEDS: SPIRONOLACTONE 25 MG TAB PO SCH (08:48)
[2018-05-25] MEDS: DULoxetine HCL 30 MG CAPCR PO SCH (08:48)
[2018-05-25] MEDS: buPROPion XL 150 MG TABCR PO SCH (08:48)
[2018-05-25] MEDS: CALCIUM CARBONATE/VITAMIN D3 PO SCH ×2 (08:49→17:35)
[2018-05-25] MEDS: ASCORBIC ACID 500 MG TAB PO SCH ×2 (08:49→21:31)
[2018-05-25] MEDS: PROPRANOLOL HCL 20 MG TAB PO SCH ×2 (08:49→21:31)
[2018-05-25] MEDS: LOSARTAN POTASSIUM 50 MG TAB PO SCH (08:49)
[2018-05-25] MEDS: MONTELUKAST SODIUM 10 MG TAB PO SCH (08:50)
[2018-05-25] MEDS: ACETAMINOPHEN 325 MG TAB PO PRN (15:31)
[2018-05-25 15:56] VITALS: BP 115/63
[2018-05-25 21:20] VITALS: BP 121/70
[2018-05-25] MEDS: ATORVASTATIN 40 MG TAB PO SCH (21:30)
[2018-05-25] MEDS: traZODone HCL 50 MG TAB PO PRN (21:30)
[2018-05-26] MEDS: BUDESO/FORMOT 160/4.5 MCG 6 GM INH SCH ×2 (05:00→17:03)
[2018-05-26 08:00] VITALS: BP 131/70
[2018-05-26] MEDS: ASCORBIC ACID 500 MG TAB PO SCH ×2 (08:52→21:06)
[2018-05-26] MEDS: ENOXAPARIN 40 MG/0.4ML SYR SC SCH (08:52)
[2018-05-26] MEDS: LOSARTAN POTASSIUM 50 MG TAB PO SCH (08:53)
[2018-05-26] MEDS: CELECOXIB 200 MG CAP PO SCH ×2 (08:53→17:32)
[2018-05-26] MEDS: PREGABALIN 75 MG CAPSULE PO SCH ×2 (08:53→21:06)
[2018-05-26] MEDS: ACETAMINOPHEN 325 MG TAB PO PRN ×2 (08:54→19:42)
[2018-05-26] MEDS: SPIRONOLACTONE 25 MG TAB PO SCH (08:54)
[2018-05-26] MEDS: MONTELUKAST SODIUM 10 MG TAB PO SCH (08:54)
[2018-05-26] MEDS: buPROPion XL 150 MG TABCR PO SCH (08:54)
[2018-05-26] MEDS: PANTOPRAZOLE SOD 40 MG TABEC PO SCH (08:54)
[2018-05-26] MEDS: ARIPiprazole 10 MG TAB PO SCH (08:55)
[2018-05-26] MEDS: PROPRANOLOL HCL 20 MG TAB PO SCH ×2 (08:55→21:11)
[2018-05-26] MEDS: oxyCODONE HCL 5 MG CAP PO PRN ×3 (08:55→21:05)
[2018-05-26] MEDS: DULoxetine HCL 30 MG CAPCR PO SCH (08:55)
[2018-05-26] MEDS: CALCIUM CARBONATE/VITAMIN D3 PO SCH ×2 (08:56→17:32)
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
[2018-05-26 15:50] VITALS: BP 113/68
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
[2018-05-26 19:50] VITALS: BP 114/64
[2018-05-26] MEDS: traZODone HCL 50 MG TAB PO PRN (21:05)
[2018-05-26] MEDS: ATORVASTATIN 40 MG TAB PO SCH (21:06)
[2018-05-26] MEDS: MELATONIN 3 MG TAB PO PRN (21:11)
[2018-05-27] MEDS: BUDESO/FORMOT 160/4.5 MCG 6 GM INH SCH ×2 (05:49→17:07)
[2018-05-27] MEDS: PREGABALIN 75 MG CAPSULE PO SCH ×2 (08:53→21:12)
[2018-05-27] MEDS: MONTELUKAST SODIUM 10 MG TAB PO SCH (08:53)
[2018-05-27] MEDS: DULoxetine HCL 30 MG CAPCR PO SCH (08:53)
[2018-05-27] MEDS: PANTOPRAZOLE SOD 40 MG TABEC PO SCH (08:53)
[2018-05-27] MEDS: CALCIUM CARBONATE/VITAMIN D3 PO SCH ×2 (08:53→17:41)
[2018-05-27] MEDS: CELECOXIB 200 MG CAP PO SCH ×2 (08:53→17:41)
[2018-05-27] MEDS: LOSARTAN POTASSIUM 50 MG TAB PO SCH (08:53)
[2018-05-27] MEDS: buPROPion XL 150 MG TABCR PO SCH (08:53)
[2018-05-27] MEDS: PROPRANOLOL HCL 20 MG TAB PO SCH ×2 (08:54→21:12)
[2018-05-27] MEDS: ARIPiprazole 10 MG TAB PO SCH (08:54)
[2018-05-27] MEDS: ENOXAPARIN 40 MG/0.4ML SYR SC SCH (08:54)
[2018-05-27] MEDS: SPIRONOLACTONE 25 MG TAB PO SCH (08:54)
[2018-05-27] MEDS: ASCORBIC ACID 500 MG TAB PO SCH ×2 (08:54→21:12)
[2018-05-27] MEDS: oxyCODONE HCL 5 MG CAP PO PRN ×3 (08:56→21:12)
[2018-05-27] MEDS: ACETAMINOPHEN 325 MG TAB PO PRN ×2 (08:57→15:13)
[2018-05-27 09:05] VITALS: BP 110/62
--- NOTE | 2018-05-27 12:24 | NUR ---
14-day and DC MDS completed with pt. C: 15, D: 04, E: no concerns, Q: pt already set-up with [facility], no further DC needs at present. Will continue to follow should needs arise. Pt has scheduled care conference this afternoon, voicing desire to DC tomorrow to home with [facility].
[2018-05-27 15:45] VITALS: BP 111/61
[2018-05-27 20:34] VITALS: BP 129/70
[2018-05-27] MEDS: traZODone HCL 50 MG TAB PO PRN (21:11)
[2018-05-27] MEDS: MELATONIN 3 MG TAB PO PRN (21:12)
[2018-05-27] MEDS: ATORVASTATIN 40 MG TAB PO SCH (21:12)
[2018-05-28] MEDS: BUDESO/FORMOT 160/4.5 MCG 6 GM INH SCH (05:51)
[2018-05-28 08:30] VITALS: BP 131/70
[2018-05-28] MEDS: buPROPion XL 150 MG TABCR PO SCH (08:43)
[2018-05-28] MEDS: LOSARTAN POTASSIUM 50 MG TAB PO SCH (08:43)
[2018-05-28] MEDS: DULoxetine HCL 30 MG CAPCR PO SCH (08:43)
[2018-05-28] MEDS: MONTELUKAST SODIUM 10 MG TAB PO SCH (08:44)
[2018-05-28] MEDS: CELECOXIB 200 MG CAP PO SCH (08:44)
[2018-05-28] MEDS: PANTOPRAZOLE SOD 40 MG TABEC PO SCH (08:44)
[2018-05-28] MEDS: CALCIUM CARBONATE/VITAMIN D3 PO SCH (08:44)
[2018-05-28] MEDS: ASCORBIC ACID 500 MG TAB PO SCH (08:45)
[2018-05-28] MEDS: PREGABALIN 75 MG CAPSULE PO SCH (08:45)
[2018-05-28] MEDS: ACETAMINOPHEN 325 MG TAB PO PRN (08:45)
[2018-05-28] MEDS: ARIPiprazole 10 MG TAB PO SCH (08:45)
[2018-05-28] MEDS: ENOXAPARIN 40 MG/0.4ML SYR SC SCH (08:45)
[2018-05-28] MEDS: SPIRONOLACTONE 25 MG TAB PO SCH (08:45)
[2018-05-28] MEDS: PROPRANOLOL HCL 20 MG TAB PO SCH (08:46)
[2018-05-28] MEDS: oxyCODONE HCL 5 MG CAP PO PRN (09:38)
--- NOTE | 2018-05-28 12:00 | NUR ---
Physical Therapy Impression For all B) LE wounds: Non-excisional debridement completed to the dermis in order to remove adhered yellow slough and non-viable tissue. Wounds cleansed with sterile saline and silicone border dressings applied. These were reinforced with XL long thigh high LOBO hose, to avoid complications with catheterization, but allow for protection of skin during transfers and slide board placement, as well as optimizing contact of silicone border dressings with less chance of disruption. AT R) lateral thigh harvest site there is a new area of blister formation and small skin tear where pt had been placing slide board for transfers. Pt made aware of this fragile skin and importance of protection while epidermis continues to strengthen with remodeling process. Physical Therapy Goals 1. Mod I bed mobility. 2. Mod I transfers with previous technique of lateral scoot. 3. Mod I wheelchair mobility. Patient's Goals
[2018-05-28] MEDS ORDERED: HYDR-627 PO (14:29)
[2018-05-28] MEDS ORDERED: OMEP40CA48 PO (14:29)
[2018-05-28] MEDS ORDERED: ATOR40TA69 PO (14:29)
[2018-05-28] MEDS ORDERED: BUDE10.2 INH (14:29)
[2018-05-28] MEDS ORDERED: OXYC-823 PO (14:44)
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
== END 2018-05-28 16:05 | disposition home health service (06) | DRG 606 ==
LOC: SWB 13:50
PROVIDERS: ADMIT Internal Medicine; ATTEND Internal Medicine
PROC: 0H9DXZZ Drainage of Right Lower Arm Skin, External Approach (ICD-10-PCS; principal; 2018-05-15)
PROC: 0JDM3ZZ Extraction of Left Upper Leg Subcutaneous Tissue and Fascia, Percutaneous Approach (ICD-10-PCS; 2018-05-15)
PROC: 0JDM3ZZ Extraction of Left Upper Leg Subcutaneous Tissue and Fascia, Percutaneous Approach (ICD-10-PCS; 2018-05-15)
PROC: 0JDP3ZZ Extraction of Left Lower Leg Subcutaneous Tissue and Fascia, Percutaneous Approach (ICD-10-PCS; 2018-05-15)
PROC: 0JDL3ZZ Extraction of Right Upper Leg Subcutaneous Tissue and Fascia, Percutaneous Approach (ICD-10-PCS; 2018-05-15)
PROC: 0JDL3ZZ Extraction of Right Upper Leg Subcutaneous Tissue and Fascia, Percutaneous Approach (ICD-10-PCS; 2018-05-15)
PROC: 0JDL3ZZ Extraction of Right Upper Leg Subcutaneous Tissue and Fascia, Percutaneous Approach (ICD-10-PCS; 2018-05-15)
PROC: 0JDL3ZZ Extraction of Right Upper Leg Subcutaneous Tissue and Fascia, Percutaneous Approach (ICD-10-PCS; 2018-05-15)
PROC: 0HDHXZZ Extraction of Right Upper Leg Skin, External Approach (ICD-10-PCS; 2018-05-19)
PROC: 0JDM3ZZ Extraction of Left Upper Leg Subcutaneous Tissue and Fascia, Percutaneous Approach (ICD-10-PCS; 2018-05-22)
PROC: 0JDL3ZZ Extraction of Right Upper Leg Subcutaneous Tissue and Fascia, Percutaneous Approach (ICD-10-PCS; 2018-05-22)
PROC: 0JDL3ZZ Extraction of Right Upper Leg Subcutaneous Tissue and Fascia, Percutaneous Approach (ICD-10-PCS; 2018-05-22)
PROC: 0HDJXZZ Extraction of Left Upper Leg Skin, External Approach (ICD-10-PCS; 2018-05-22)
PROC: 0HDJXZZ Extraction of Left Upper Leg Skin, External Approach (ICD-10-PCS; 2018-05-22)
PROC: 0HDHXZZ Extraction of Right Upper Leg Skin, External Approach (ICD-10-PCS; 2018-05-22)
PROC: 0HDHXZZ Extraction of Right Upper Leg Skin, External Approach (ICD-10-PCS; 2018-05-22)
PROC: 0JDM3ZZ Extraction of Left Upper Leg Subcutaneous Tissue and Fascia, Percutaneous Approach (ICD-10-PCS; 2018-05-26)
PROC: 0JDM3ZZ Extraction of Left Upper Leg Subcutaneous Tissue and Fascia, Percutaneous Approach (ICD-10-PCS; 2018-05-26)
PROC: 0JDP3ZZ Extraction of Left Lower Leg Subcutaneous Tissue and Fascia, Percutaneous Approach (ICD-10-PCS; 2018-05-26)
PROC: 0JDL3ZZ Extraction of Right Upper Leg Subcutaneous Tissue and Fascia, Percutaneous Approach (ICD-10-PCS; 2018-05-26)
PROC: 0HDJXZZ Extraction of Left Upper Leg Skin, External Approach (ICD-10-PCS; 2018-05-26)
PROC: 0HDHXZZ Extraction of Right Upper Leg Skin, External Approach (ICD-10-PCS; 2018-05-26)
PROC: 0HDHXZZ Extraction of Right Upper Leg Skin, External Approach (ICD-10-PCS; 2018-05-26)
PROC: 0HDHXZZ Extraction of Right Upper Leg Skin, External Approach (ICD-10-PCS; 2018-05-26)
PROC: 0HDLXZZ Extraction of Left Lower Leg Skin, External Approach (ICD-10-PCS; 2018-05-28)
PROC: 0HDJXZZ Extraction of Left Upper Leg Skin, External Approach (ICD-10-PCS; 2018-05-28)
PROC: 0HDJXZZ Extraction of Left Upper Leg Skin, External Approach (ICD-10-PCS; 2018-05-28)
PROC: 0HDJXZZ Extraction of Left Upper Leg Skin, External Approach (ICD-10-PCS; 2018-05-28)
PROC: 0HDHXZZ Extraction of Right Upper Leg Skin, External Approach (ICD-10-PCS; 2018-05-28)
PROC: 0HDHXZZ Extraction of Right Upper Leg Skin, External Approach (ICD-10-PCS; 2018-05-28)
PROC: 0HDHXZZ Extraction of Right Upper Leg Skin, External Approach (ICD-10-PCS; 2018-05-28)
DX: S60.521A Blister (nonthermal) of right hand, initial encounter (principal); T31.22 Burns involving 20-29% of body surface with 20-29% third degree burns; G82.20 Paraplegia, unspecified; M86.672 Other chronic osteomyelitis, left ankle and foot; T22.311D Burn of third degree of right forearm, subsequent encounter; T24.312D Burn of third degree of left thigh, subsequent encounter; T24.311D Burn of third degree of right thigh, subsequent encounter; E78.00 Pure hypercholesterolemia, unspecified; I10 Essential (primary) hypertension; G47.30 Sleep apnea, unspecified; F32.9 Major depressive disorder, single episode, unspecified; J44.9 Chronic obstructive pulmonary disease, unspecified; R32 Unspecified urinary incontinence; Z98.1 Arthrodesis status; Z90.710 Acquired absence of both cervix and uterus; Z88.0 Allergy status to penicillin; Z88.7 Allergy status to serum and vaccine; W05.0XXA Fall from non-moving wheelchair, initial encounter; Y92.009 Unspecified place in unspecified non-institutional (private) residence as the place of occurrence of the external cause
CPT/HCPCS: 10160; 36415; 82040; 82247; 82310; 82374; 82435; 82565; 82947; 84075; 84132; 84155; 84295; 84450; 84460; 84520; 85025; 94640; 97162; 97163; 97166; J1650; J3535

== ENCOUNTER → 2018-08-21 | Outpatient (REF) | payer MEDICARE, MEDICAID ==
[~2018-08-21] MED LIST changes: +ATOR40TA69 PO; +BUDE10.2 INH; +DICY10CA11 PO; +HYDR-385 PO; +HYDR-627 PO; +IBAN150T3 PO; +MULT1CAP59 PO; +OXYB15TA14 PO; +OXYC-823 PO; +OXYC10TA67 PO; +PREG75CA60 PO; +TRAZ100T31 PO
== END ==
LOC: ZZSENDIN 14:55
PROVIDERS: ATTEND Nurse Practitioner Family
DX: S91.14 Puncture wound with foreign body of toe without damage to nail (principal); B96.5 Pseudomonas (aeruginosa) (mallei) (pseudomallei) as the cause of diseases classified elsewhere; B95.61 Methicillin susceptible Staphylococcus aureus infection as the cause of diseases classified elsewhere
CPT/HCPCS: 87070; 87077; 87186

== ENCOUNTER → 2018-09-08 | Outpatient (CLI) | payer MEDICARE, MEDICAID ==
--- NOTE | 2018-09-08 16:43 | RADIOLOGY IMAGING REPORT ---
[place] [facility] [place] NAME: Mounika Thornton : 1960 MR: [id number] V: [id number] EXAM DATE: ORDERING PHYSICIAN: SVITLANA WOOTEN TECHNOLOGIST: Location: [facility] Patient: Mounika Thornton : 1960 Visit/Account:[id number] Date of Sevice: 09/08/2018 FOOT 3 VIEWS RIGHT History: Right foot ulcer. Second digit skin breakdown. Lesion. Comparison study: None. Findings: There is disuse osteopenia. There is diffuse joint space narrowing. There are findings of osteoarthrosis involving the right first MTP joint. There are no findings of bony erosion involving the second digit to suggest osteomyelitis. If there i s further concern an MRI scan would be helpful for further evaluation. There is a plantar spur. IMPRESSION: 1. There are no findings of bony erosion in the region of the left second digit to suggest osteomyeli tis. 2. Diffuse osteopenia. 3. Degenerative changes involving the right first MTP joint. Report Dictated By: Frederick Etienne MD at 09/08/2018 4:36 PM Report E-Signed By: Frederick Etienne MD at 09/08/2018 4:37 PM WSN:[id number]
== END ==
LOC: RAD 13:08
PROVIDERS: ATTEND Nurse Practitioner Family
DX: M85.871 Other specified disorders of bone density and structure, right ankle and foot (principal); M19.071 Primary osteoarthritis, right ankle and foot

== ENCOUNTER → 2018-10-23 | Outpatient (CLI) | payer MEDICARE, MEDICAID ==
[~2018-10-23] MED LIST changes: -TRAZ50TA34 PO; +TRAZ50TA52 PO
== END ==
LOC: LAB 15:37
PROVIDERS: ATTEND Nurse Practitioner Family
DX: S91.109D Unspecified open wound of unspecified toe(s) without damage to nail, subsequent encounter (principal); B96.89 Other specified bacterial agents as the cause of diseases classified elsewhere
CPT/HCPCS: 87070; 87077; 87186

== ENCOUNTER → 2018-10-30 | Outpatient (REF) | payer MEDICARE, MEDICAID | LOC: ZZSENDIN 17:58 | PROVIDERS: ATTEND Nurse Practitioner Family | DX: L89.894 Pressure ulcer of other site, stage 4 (principal); K52.9 Noninfective gastroenteritis and colitis, unspecified | CPT/HCPCS: 82274; 87045; 87177; 87324; 87449 ==

== ENCOUNTER → 2018-11-11 | Outpatient (CLI) | payer MEDICARE, MEDICAID ==
--- NOTE | 2018-11-11 15:48 | RADIOLOGY IMAGING REPORT ---
[place] [facility] [place]: Mounika Thornton : 1960 MR: [id number] V: [id number] EXAM DATE: ORDERING PHYSICIAN: SVITLANA WOOTEN TECHNOLOGIST: Location: [facility] Patient: Mounika Thornton : 1960 Visit/Account:[id number] Date of Sevice: 11/11/2018 MRI right foot Indication: Paraplegia. Pressure ulcer second toe. Evaluate for osteomyelitis. Comparison: Plain films 09/08/2018 are reviewed. Technique: Multiplanar, multisequence MRI examination is performed of the right foot focusing on the forefoot without contrast. Findings: In keeping with the stated history, there is a soft tissue ulceration identified along the dorsum of the right second toe. This overlies the head of the proximal phalanx and the PIP joint. There is asso ciated skin thickening along the peripheral margins of the ulcer and there is fairly extensive subcut aneous edema identified. This is circumferential about the mid and proximal aspect of the toe. There is abnormal marrow edema identified within the head of the proximal phalanx which extends proximally into the shaft region. Suspected bone destruction involves the dorsal margin of the head of the proxi mal phalanx. There is marrow edema within the middle phalanx. The head of the proximal phalanx is see n in close proximity to the base of the wound. Findings are consistent with osteomyelitis of the prox imal and middle phalanges. Possibility of joint centered infection at the PIP joint must be considere d. No soft tissue fluid collection is identified to suggest an abscess at this time. The marrow patte rn of the remaining toes is unremarkable. There are changes of osteoarthritis identified at the first and the second metatarsophalangeal joints . There is osteoarthritis at the interphalangeal joint of the great toe. There is diffuse atrophy of the intrinsic musculature of the foot in keeping with chronic denervation change. No evidence of deep soft tissue fluid collection. IMPRESSION: 1. Deep soft tissue ulcer involving the dorsal margin of the second toe as reported above with circum ferential subcutaneous edema. No evidence of soft tissue abscess. 2. MRI findings consistent with osteomyelitis involving the proximal and middle phalanges of the seco nd toe most pronounced in the region of the head of the proximal phalanx where there is suspected foc al bone destruction. Given the distribution of the marrow edema, consideration must be given to septi c arthropathy at the PIP joint. Report Dictated By: Garry Mulligan at 11/11/2018 3:31 PM Report E-Signed By: Garry Mulligan at 11/11/2018 3:41 PM WSN:[id number]
== END ==
LOC: MRI 01:01
PROVIDERS: ATTEND Nurse Practitioner Family
DX: L89.894 Pressure ulcer of other site, stage 4 (principal); M86.171 Other acute osteomyelitis, right ankle and foot; R60.9 Edema, unspecified

== ENCOUNTER → 2018-11-14 | Outpatient (CLI) | payer MEDICARE, MEDICAID ==
[~2018-11-14] MED LIST changes: +BREX2TAB PO
[2018-11-14 13:17] LABS: PLATELET COUNT, AUTOMATED 315 K/uL (150-450)
--- NOTE | 2018-11-14 13:57 | RADIOLOGY IMAGING REPORT ---
FACILITY: [facility] PATIENT NAME: Mounika Thornton : 1960 MR: [id number] V: [id number] EXAM DATE: ORDERING PHYSICIAN: DERICK JARAMILLO TECHNOLOGIST: Location: [facility] [place] Patient: Mounika Thornton : 1960 Visit/Account:[id number] Date of Sevice: 11/14/2018 Study: Frontal and lateral views of the chest Indication: COPD, sleep apnea Comparison study: None available Findings: PA and lateral views of the chest demonstrate no evidence of acute infiltrate. There is no evidence of pleural effusion. There is no evidence of pneumothorax. The mediastinal, cardiac, and diaphragmatic contours are unremarkable. The patient is status post thoracolumbar spine surgery as well as cervical spine surgery. IMPRESSION: No acute cardiopulmonary abnormality identified. Report Dictated By: Collin Olivares at 11/14/2018 1:48 PM Report E-Signed By: Collin Olivares at 11/14/2018 1:50 PM WSN:[id number]
--- NOTE | 2018-11-15 08:30 | EKG ---
FACILITY: [facility] [place] PATIENT NAME: CAITLIN FIGUEROA : [id number] MR: [id number] V: [id number] EXAM DATE: ORDERING PHYSICIAN: DERICK JARAMILLO TECHNOLOGIST: KWAKU ROSENBAUM Test Reason : copd hx, pre-op Blood Pressure : / mmHG Vent. Rate : 066 BPM Atrial Rate : 066 BPM P-R Int : 154 ms QRS Dur : 080 ms QT Int : 412 ms P-R-T Axes : 046 175 040 degrees QTc Int : 431 ms Normal sinus rhythm Low voltage QRS Borderline ECG No previous ECGs available Confirmed by MIRA LINDA ([id number]) on 11/17/2018 2:45:13 PM Referred By: CLINT Confirmed By:MIRA LINDA
== END ==
LOC: LAB 12:56
PROVIDERS: ATTEND Surgery
DX: J44.9 Chronic obstructive pulmonary disease, unspecified (principal); G47.30 Sleep apnea, unspecified
CPT/HCPCS: 36415; 71046; 85025

== ENCOUNTER 2018-11-21 00:45 | Day surgery (SDC) | payer MEDICARE, MEDICAID ==
[~2018-11-21] VITALS: Ht 165.1 cm; Wt 81.6 kg
[2018-11-21] MEDS ORDERED: NORMOSOL R SOLN(*) 1000 ML BAG 1,000 ML IV PRN (12:45)
[2018-11-21] MEDS ORDERED: MIDAZOLAM 2 MG/2 ML VIAL IVP PRN (12:45)
[2018-11-21] MEDS ORDERED: metroNIDAZOLE* 500MG/100ML BAG 100 ML IVPB ONE (12:45)
[2018-11-21] MEDS ORDERED: LIDOCAINE/SOD BICARB 8.4% SYR ID ONE (12:45)
[2018-11-21] MEDS ORDERED: LEVOFLOXACIN/D5W*500 MG/100 ML 100 ML IVPB ONE (12:45)
[2018-11-21] MEDS ORDERED: PROPOFOL EMUL(*) 10MG/ML 20 ML 40 ML ONE ×2 (13:05→13:59)
[2018-11-21] MEDS ORDERED: ROPIVACAINE 0.5% 20 ML VIAL ONE (13:25)
[2018-11-21] MEDS ORDERED: NEOMYCIN/POLYMYX/BACITR 30 GM TP ONE (13:26)
--- NOTE | 2018-11-21 15:07 | Short(Outpt) Discharge Summary ---
Discharge Summary Reason for Hosp/Final Diag: (1) Ulcer of toe of left foot Status: Acute Hospital Course & Plan: Right 2nd toe amputation completed without problems. (2) Diarrhea Status: Chronic Hospital Course & Plan: Colonoscopy with biopsies completed without problems. Departure Discharge to: Home, Self Care Discharge Instructions Home Meds Active Scripts Oxycodone Hcl (OXYCONTIN) 10 Mg Tab.er.12h, 10 MG PO Q12H, #50 TAB Prov:PRECIOUS CARPIO MD 05/28/18 Reported Medications Brexpiprazole (Rexulti) 2 Mg Tablet, 2 MG PO QHS 11/17/18 Hydrocodone Bit/Acetaminophen (NORCO 10-325 TABLET) 1 Each Tablet, 1 TAB PO Q6H PRN for PAIN 05/28/18 Omeprazole (OMEPRAZOLE) 40 Mg Capsule.dr, 40 MG PO QDAY, CAP 05/28/18 Budesonide/Formoterol Fumarate (SYMBICORT 160-4.5 MCG INHALER) 10.2 Gm Inh, 2 PUFF INH BID, INH 05/28/18 Atorvastatin Calcium (ATORVASTATIN CALCIUM) 40 Mg Tablet, 1 TAB PO QHS, TAB 05/28/18 Multivitamin (MULTIVITAMINS) 1 Each Capsule, 1 EACH PO QDAY, CAPSULE 05/15/18 Pregabalin (LYRICA) 75 Mg Capsule, 75 MG PO HS, CAPSULE 05/15/18 Ibandronate Sodium (IBANDRONATE SODIUM) 150 Mg Tablet, 150 MG PO Q30D 05/15/18 Dicyclomine Hcl (DICYCLOMINE HCL) 10 Mg Capsule, 10 MG PO TID, CAPSULE 05/15/18 Oxybutynin Chloride (OXYBUTYNIN CHLORIDE ER) 15 Mg Tab.er.24, 15 MG PO QDAY, TAB.SA 05/15/18 Montelukast Sodium (SINGULAIR) 10 Mg Tablet, 1 TAB PO QDAY, TAB 05/15/18 Trazodone Hcl (TRAZODONE HCL) 100 Mg Tablet, 150 MG PO HS, TAB 05/15/18 Mirabegron (MYRBETRIQ) 50 Mg Tab.er.24h, 50 MG PO DAILY 11/01/15 Oxygen (OXYGEN) Unknown Strength Inha, 2.5 L INH QHS, L 10/25/15 Cholecalciferol (Vitamin D3) (VITAMIN D) 10,000 Unit Capsule, 1 UNITS PO QDAY, CAPSULE 10/25/15 Spironolactone (SPIRONOLACTONE) 25 Mg Tablet, 1 TAB PO QDAY, TAB 10/25/15 Propranolol Hcl (PROPRANOLOL HCL) 10 Mg Tablet, 1 TAB PO BID 10/25/15 [place]-3 Fatty Acids/Fish Oil (FISH OIL 1,000 MG SOFTGEL) 1 Each Capsule, 1 TAB PO BID, CAPSULE 10/25/15 Celecoxib (CELEBREX) 200 Mg Capsule, 1 TAB PO BID, CAPSULE 10/25/15 Calcium Carbonate/Vitamin D3 (CALCIUM 500 + VIT D 200 CAPLET) 1 Each Tablet, 1 TAB PO DAILY 10/25/15 Bupropion Hcl (WELLBUTRIN XL) 300 Mg Tab.er.24h, 1 TAB PO QDAY, TAB 10/25/15 Baclofen (BACLOFEN) 10 Mg Tablet, 1 TAB PO BID, #30 TAB 10/25/15 Albuterol Sulfate (Proair Respiclick) 90 Mcg Aer.pow.ba, 2 PUFF INH Q4H PRN for ALLERGY SYMPTOMS 10/25/15 Discontinued Reported Medications Aripiprazole (ABILIFY) 15 Mg Tablet, 15 MG PO HS, TAB 02/22/18 Duloxetine Hcl (CYMBALTA) 60 Mg Capsule.dr, 2 TAB PO QDAY, #10 CAP 10/25/15 Aspirin (ASPIR 81) 81 Mg Tablet.dr, 1 TAB PO QDAY, TAB 10/25/15 Follow up Referrals: General Surgery - 12/05/18 @ Surgery, General with DERICK JARAMILLO MD You have a follow up appointment scheduled with Dr. Jaramillo on 12/05/18, at 11:30am. Diet: Regular Activity: As Tolerated Special Instructions: Your colonoscopy was completed without problems but your prep wasn't too good so I can't consider this an adequate screening colonoscopy. I didn't see any inflammation, polyps, or cancers in the areas I was able to examine but there was quite a bit of stool in your colon that could cover some abnormalities. You may remove the dressing from your foot on 11/23/18, then you can shower. After showering, apply a new band-aid to cover the incision and sutures and change this daily. Don't immerse the incision until I tell you it's completely healed. 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
--- NOTE | 2018-11-21 15:11 | Post Operative Progress Note ---
Post Operative Progress Note Date: Nov 21, 2018 Time: 15:04 Surgeon: Marcy Dictation number: [id number] Anesthesia: TIVA by Dr. Joshi Pre-Op Diagnosis: Right 2nd toe ulcer with osteomyelitis Post-Op Diagnosis: OMAR Findings: C/W dx Procedure(s): Right 2nd toe amputation Specimen Removed:(May be N/A): Right 2nd toe. Complications: None Fluids: See anesthesia record Estimated Blood Loss: Minimal Date OP Note Dictated: Nov 21, 2018 Time OP Note Dictated: 15:05 DERICK JARAMILLO MD Nov 21, 2018 15:11
--- NOTE | 2018-11-22 08:27 | OPERATIVE REPORT 1 ---
EVENT DATE: November 21, 2018 SURGEON: Tim Vidal MD ANESTHESIOLOGIST: Marcelo Joshi MD ANESTHESIA: TIVA PREOPERATIVE DIAGNOSIS Right second toe ulcer with osteomyelitis. POSTOPERATIVE DIAGNOSIS Right second toe ulcer with osteomyelitis. PROCEDURE PERFORMED Right second toe amputation through the proximal phalanx. COMPLICATIONS None. CONDITION Stable. ESTIMATED BLOOD LOSS Minimal. INDICATIONS This is a 58-year-old paraplegic wheelchair bound patient who was referred to my office with an ulcer on the dorsum of her second toe over the proximal interphalangeal joint and it went down to the bone. I discussed right second toe amputation with her and she provided consent for this. DESCRIPTION OF PROCEDURE The patient was brought to the operating room and placed supine on the operating table. TIVA anesthesia was administered and her right foot was prepped and draped in sterile fashion. A timeout was completed and I injected the base of the right toe with 0.5% ropivacaine plain individual ring block fashion. I then marked the skin so as to preserve as much soft tissue and then I made an incision where I marked it proximal to the ulcer and then incised all the way through the soft tissues down to the bone. I then removed the distal portion of the toe through the interphalangeal joint and then used a periosteal elevator to separate the soft tissues from the bone and then cut the bone in the mid shaft, proximal to the infection and passed this off the field. I then used a rongeur to debride any sharp fragments of bone and then irrigated and dried the wound and made it hemostatic and reapproximated the flexor and extensor tendons over the divided bone with interrupted 3-0 Vicryl sutures and closed the skin with a running 3-0 Nylon sutures. The incision was cleaned and dried and Bacitracin antibiotic ointment was applied to the incision, followed by a sterile surgical dressing. The patient was then brought to the recovery room in good condition having tolerated the procedure without any apparent problems. RAMSES
== END 2018-11-21 14:48 | disposition home or self-care (01) ==
LOC: OR 00:45
PROVIDERS: ATTEND Surgery
DX: L97.518 Non-pressure chronic ulcer of other part of right foot with other specified severity (principal); R19.7 Diarrhea, unspecified
CPT/HCPCS: 00811; 28825; 36415; 45380; 88305; 88311; A9270; J2704; J2795; J3490; 82310; 82374; 82435; 82565; 82947; 84132; 84295; 84520